=== PATIENT | female | born 1940 | race Two or more races ===

== ENCOUNTER 2022-11-11 21:27 | Inpatient (IN) | payer MEDICARE ==
[~2022-11-11] VITALS: Ht 157.5 cm; Wt 59.9 kg
--- NOTE | 2022-11-11 22:00 | NUR ---
Received a 82 yr old female from [facility] with an admitting diagnosis of S/P left hip fracture, S/P left hip ORIF (11/07/22) by Dr Banda. AAOx3-4. All needs attended. VSS. Left hip dressing with minimal drainage and intact with raghavendra. Fall precautions maintained. On room air. Denies any pain nor any discomfort. Glez catheter removed today at [facility]. I & O monitor. Hx of HTN, Hyperlipidemia and Falls. Patient on regular diet. Will monitor patient. Angela SALES REPRESENTATIVE [employer] aware and also Dr Sheikh aware of patient's admission. No acute distress noted.
[2022-11-11] MEDS ORDERED: ENOX40DI SQ (22:23)
[2022-11-11] MEDS ORDERED: LISI10TA29 PO (22:23)
[2022-11-11] MEDS ORDERED: BUPR-319 PO (22:23)
[2022-11-11] MEDS ORDERED: QUET50TA PO (22:23)
[2022-11-11] MEDS ORDERED: RALO60TA PO (22:23)
[2022-11-11] MEDS ORDERED: OXYB10TA30 PO (22:23)
[2022-11-11] MEDS ORDERED: CARV6.252 PO (22:23)
[2022-11-11] MEDS ORDERED: REMEDY ESSENTIAL ZINC PASTE 113 GM TOP PRN (22:45)
[2022-11-11] MEDS: OXYCODONE/APAP 5-325 MG TABLET PO PRN (23:19)
[2022-11-12 06:22] VITALS: BP 147/64
[2022-11-12 06:25] VITALS: BP 147/64
[2022-11-12 08:00] VITALS: BP 152/65
[2022-11-12] MEDS: ENOXAPARIN SODIUM 40 MG/0.4 ML DISP.SYRIN SQ SCH (09:12)
[2022-11-12] MEDS: OXYBUTYNIN XL 5 MG TABSR PO SCH (09:13)
[2022-11-12] MEDS: buPROPion XL 150 MG TAB.SR.24H PO SCH (09:13)
[2022-11-12] MEDS: CARVEDILOL 6.25 MG TABLET PO SCH ×2 (09:13→16:54)
[2022-11-12] MEDS: OXYCODONE/APAP 5-325 MG TABLET PO PRN ×2 (09:14→20:25)
[2022-11-12] MEDS: RALOXIFENE HCL 60 MG TABLET PO SCH (09:15)
[2022-11-12] MEDS ORDERED: MAGNESIUM HYDROXIDE 30 ML LIQUID UDC PO ONE (15:30)
[2022-11-12] MEDS: MIRALAX 17 GM POWD.PACK PO SCH (15:56)
[2022-11-12 16:00] VITALS: BP 153/64
[2022-11-12] MEDS: LISINOPRIL 10 MG TABLET PO SCH (16:54)
[2022-11-12] MEDS: QUETIAPINE FUMARATE 25 MG TABLET PO SCH (17:04)
--- NOTE | 2022-11-12 18:53 | NUR ---
patient voided once during shift, no bladder discomfort noted, no bladder distension noted.
--- NOTE | 2022-11-12 19:09 | NUR ---
Patient stated she voided once with PT, however bladder scan is 520ml, in and out catheter performed with 800ml output.
[2022-11-12] MEDS ORDERED: BISACODYL 10 MG SUPP.RECT RC ONE (19:30)
[2022-11-12 20:00] VITALS: BP 154/67
[2022-11-13 04:00] VITALS: BP 143/53
--- NOTE | 2022-11-13 05:32 | NUR ---
Pt distended. Bladder scanner showed 350 ml. Straight cath done. Had output of 400 ml. Pt stated relief.
[2022-11-13] MEDS: OXYCODONE/APAP 5-325 MG TABLET PO PRN (06:23)
--- NOTE | 2022-11-13 06:50 | NUR ---
Slept intermittently. Complained of pain on her left hip, Percocet given as ordered. Suppository given. Had 3 small bowel movement. Kept clean and dry. All needs attended. Safety precautions maintained. Will endorse to incoming shift.
[2022-11-13 08:00] VITALS: BP 146/65
[2022-11-13] MEDS: buPROPion XL 150 MG TAB.SR.24H PO SCH (09:29)
[2022-11-13] MEDS: LISINOPRIL 10 MG TABLET PO SCH (09:29)
[2022-11-13] MEDS: CARVEDILOL 6.25 MG TABLET PO SCH ×2 (09:29→17:00)
[2022-11-13] MEDS: MIRALAX 17 GM POWD.PACK PO SCH (09:30)
[2022-11-13] MEDS: OXYBUTYNIN XL 5 MG TABSR PO SCH (09:30)
[2022-11-13] MEDS: RALOXIFENE HCL 60 MG TABLET PO SCH (09:34)
[2022-11-13] MEDS: ENOXAPARIN SODIUM 40 MG/0.4 ML DISP.SYRIN SQ SCH (09:35)
[2022-11-13] MEDS ORDERED: LEVO112T5 PO (11:32)
[2022-11-13] MEDS ORDERED: LEVOTHYROXINE SODIUM 112 MCG TABLET PO SCH (12:15)
[2022-11-13 16:00] VITALS: BP 115/56
[2022-11-13] MEDS: QUETIAPINE FUMARATE 25 MG TABLET PO SCH (17:22)
[2022-11-13] MEDS: VITAMINS A AND D OINT TP SCH (17:22)
--- NOTE | 2022-11-13 19:41 | NUR ---
PT STABLE THROUGHOUT THE DAY PT DONE DSG TO LEFT HIP CHANGED MINIMAL DRAINAGE NOTED 1300 BLADDER SCAN 310 . PT WITH BM X2 BLADDER SCAN DONE AT 1930 REPORT T ONCOMING RN.
[2022-11-13 20:00] VITALS: BP 128/57
[2022-11-14 04:00] VITALS: BP 111/45
--- NOTE | 2022-11-14 04:40 | NUR ---
Slept intermittently. No acute distress noted. No urine output for 8 hrs. Noted bladder distention. Bladder scanner showed 367 ml. Straight catheterization done aseptically. Had urine output of 400 ml.
[2022-11-14 07:17] LABS: HEMATOCRIT 23.1 % (31.2-41.9); MEAN CORPUSCULAR HEMOGLOBIN 30.5 uug (24.7-32.8); MEAN CORPUSCULAR VOLUME 93.4 fL (75.5-95.3); PLATELET COUNT (AUTO) 306 K/uL (179-408)
[2022-11-14 07:32] LABS: THYROID STIMULATING HORMONE 11.605 mIU/mL (0.358-3.740)
[2022-11-14 07:59] LABS: BILIRUBIN,TOTAL 0.9 mg/dL (0.2-1.0); CREATININE 0.8 mg/dL (0.6-1.3); MAGNESIUM 2.5 mg/dL (1.8-2.4); PHOSPHOROUS 3.9 mg/dL (2.5-4.9); POTASSIUM 4.1 mmol/L (3.5-5.1); TOTAL PROTEIN, SERUM 5.2 g/dL (6.4-8.2)
[2022-11-14] MEDS: VITAMINS A AND D OINT TP SCH ×3 (09:00→18:00)
[2022-11-14] MEDS: OXYBUTYNIN XL 5 MG TABSR PO SCH (10:06)
[2022-11-14] MEDS: MIRALAX 17 GM POWD.PACK PO SCH (10:06)
[2022-11-14] MEDS: CARVEDILOL 6.25 MG TABLET PO SCH ×2 (10:07→18:07)
[2022-11-14] MEDS: LISINOPRIL 10 MG TABLET PO SCH (10:08)
[2022-11-14] MEDS: buPROPion XL 150 MG TAB.SR.24H PO SCH (10:08)
[2022-11-14] MEDS: ENOXAPARIN SODIUM 40 MG/0.4 ML DISP.SYRIN SQ SCH (10:10)
[2022-11-14] MEDS: LEVOTHYROXINE SODIUM 112 MCG TABLET PO SCH (10:21)
[2022-11-14 10:49] LABS: *BILIRUBIN,URIN NEGATIVE (NEGATIVE); *CLARITY,URINE CLEAR (CLEAR); *COLOR,URINE YELLOW (YELLOW); *KETONES,URINE NEGATIVE (NEGATIVE); *UROBILINOGEN,URINE 0.2 E.U./dl (NORMAL); LEUKOCYTE ESTERASE ,URINE 2+ (NEGATIVE); NITRITE, URINE NEGATIVE (NEGATIVE); UGLUCOSE NEGATIVE (NEGATIVE)
[2022-11-14 10:51] LABS: *BLOOD, URINE TRACE (NEGATIVE)
[2022-11-14] MEDS: RALOXIFENE HCL 60 MG TABLET PO SCH (11:23)
[2022-11-14] MEDS: PROTEIN SUPPLEMENT (PROSTAT) 30 ML LIQUID PO SCH ×2 (12:20→18:00)
[2022-11-14 13:17] LABS: BACTERIA,URINE FEW /HPF (NONE SEEN); RBC,URINE 0-3 /HPF (0-3); SQUAMOUS EPITHELIAL CELL,UR MODERATE /HPF (NONE SEEN)
[2022-11-14] MEDS: CYANOCOBALAMIN 1000 MCG/ML VIAL IM SCH (14:26)
[2022-11-14] MEDS: SULFAMETH/TRIMETH 800/160 MG TABLET PO SCH ×2 (14:26→20:07)
[2022-11-14] MEDS: QUETIAPINE FUMARATE 25 MG TABLET PO SCH (18:09)
[2022-11-14 20:35] VITALS: BP 131/51
[2022-11-14] MEDS: OXYCODONE/APAP 5-325 MG TABLET PO PRN (22:59)
[2022-11-14] MEDS ORDERED: HYDROCODONE/APAP 5-325MG TABLET PO PRN (23:00)
[2022-11-15] MEDS: diphenhydrAMINE 25 MG CAP PO PRN (01:09)
--- NOTE | 2022-11-15 01:11 | NUR ---
Patient care assumed at 0015. Patient awake, alert, and oriented x4. Room air. Glez intact with clear elli urine noted. Left leg edema noted. Left hip dressing dry and intact. Circulation , movement, and sensation intact to toes. Will continue to monitor.
[2022-11-15 04:38] VITALS: BP 104/46
[2022-11-15] MEDS: LEVOTHYROXINE SODIUM 112 MCG TABLET PO SCH (05:33)
[2022-11-15 08:18] VITALS: BP 117/56
[2022-11-15] MEDS: ENOXAPARIN SODIUM 40 MG/0.4 ML DISP.SYRIN SQ SCH (08:35)
[2022-11-15] MEDS: SULFAMETH/TRIMETH 800/160 MG TABLET PO SCH ×2 (08:48→21:56)
[2022-11-15] MEDS: OXYBUTYNIN XL 5 MG TABSR PO SCH (08:48)
[2022-11-15] MEDS: CYANOCOBALAMIN 1000 MCG/ML VIAL IM SCH (08:48)
[2022-11-15] MEDS: buPROPion XL 150 MG TAB.SR.24H PO SCH (08:49)
[2022-11-15] MEDS: RALOXIFENE HCL 60 MG TABLET PO SCH (08:49)
[2022-11-15] MEDS: CARVEDILOL 6.25 MG TABLET PO SCH ×2 (08:49→16:32)
[2022-11-15] MEDS: MIRALAX 17 GM POWD.PACK PO SCH (08:50)
[2022-11-15] MEDS: LISINOPRIL 10 MG TABLET PO SCH (08:50)
[2022-11-15] MEDS: VITAMINS A AND D OINT TP SCH ×3 (08:51→16:33)
[2022-11-15] MEDS: PROTEIN SUPPLEMENT (PROSTAT) 30 ML LIQUID PO SCH ×2 (08:51→16:32)
[2022-11-15] MEDS: OXYCODONE/APAP 5-325 MG TABLET PO PRN ×2 (13:54→23:39)
[2022-11-15 15:37] VITALS: BP 128/81
[2022-11-15] MEDS: QUETIAPINE FUMARATE 25 MG TABLET PO SCH (17:16)
--- NOTE | 2022-11-15 18:46 | NUR ---
incision site is clean and dry, no signs or symptoms of infections noted, no redness, no drainage, no increased erythema noted. raghavendra intact.
[2022-11-16] MEDS: LEVOTHYROXINE SODIUM 112 MCG TABLET PO SCH (06:11)
[2022-11-16 07:22] LABS: BILIRUBIN,TOTAL 0.7 mg/dL (0.2-1.0); CREATININE 0.7 mg/dL (0.6-1.3); MAGNESIUM 2.2 mg/dL (1.8-2.4); PHOSPHOROUS 3.9 mg/dL (2.5-4.9); POTASSIUM 4.4 mmol/L (3.5-5.1); TOTAL PROTEIN, SERUM 5.2 g/dL (6.4-8.2)
[2022-11-16 07:54] VITALS: BP 159/69
[2022-11-16] MEDS: OXYBUTYNIN XL 5 MG TABSR PO SCH (09:24)
[2022-11-16] MEDS: buPROPion XL 150 MG TAB.SR.24H PO SCH (09:25)
[2022-11-16] MEDS: SULFAMETH/TRIMETH 800/160 MG TABLET PO SCH ×2 (09:25→21:12)
[2022-11-16] MEDS: LISINOPRIL 10 MG TABLET PO SCH (09:26)
[2022-11-16] MEDS: OXYCODONE/APAP 5-325 MG TABLET PO PRN ×2 (09:26→21:13)
[2022-11-16] MEDS: CYANOCOBALAMIN 1000 MCG/ML VIAL IM SCH (09:27)
[2022-11-16] MEDS: CARVEDILOL 6.25 MG TABLET PO SCH ×2 (09:27→18:20)
[2022-11-16] MEDS: MIRALAX 17 GM POWD.PACK PO SCH (09:27)
[2022-11-16] MEDS: VITAMINS A AND D OINT TP SCH ×3 (09:28→18:21)
[2022-11-16] MEDS: PROTEIN SUPPLEMENT (PROSTAT) 30 ML LIQUID PO SCH ×2 (09:29→18:21)
[2022-11-16] MEDS: RALOXIFENE HCL 60 MG TABLET PO SCH (09:32)
[2022-11-16] MEDS: ENOXAPARIN SODIUM 40 MG/0.4 ML DISP.SYRIN SQ SCH (09:38)
--- NOTE | 2022-11-16 15:44 | NUR ---
INDIVIDUALIZED PLAN OF CARE THIS WAS OBSERVED AND DONE ON 11/14/22 13:00
[2022-11-16] MEDS: QUETIAPINE FUMARATE 25 MG TABLET PO SCH (18:17)
[2022-11-16 20:00] VITALS: BP 107/45
--- NOTE | 2022-11-16 20:17 | NUR ---
RECEIVED REPORT FROM CHICO RICH, NOC SHIFT. PATIENT IS ALERT & ORIENTED X4, AND SPEAKS DUTCH. VITAL SIGNS STABLE. PATIENT HAD COMPLAINT OF PAIN. RN GAVE PAIN MEDICATIONS ORDERED BY MD. PATIENT EXPRESSED COMFORTABLE. PATIENT PARTICIPATES WITH PHYSICAL AND OCCUPATIONAL THERAPY SCHEDULED. PATIENT TOLERATES PO AND DIET WELL. WOUND DRESSING CHANGED PER ORDERED. PATIENT'S AND FRIEND VISITED TODAY. NO ACUTE DISTRESS. ALL NEEDS MET AT THIS TIME. FALL PRECAUTIONS OBSERVED. CALL LIGHT WITHIN REACH. ENDORSED CARE TO LEN PINEDA RN, NOC SHIFT FOR CONTINUATION OF CARE.
[2022-11-17] MEDS: diphenhydrAMINE 25 MG CAP PO PRN (01:27)
[2022-11-17 04:00] VITALS: BP 123/55
[2022-11-17] MEDS: LEVOTHYROXINE SODIUM 112 MCG TABLET PO SCH (06:15)
--- NOTE | 2022-11-17 07:22 | NUR ---
WOUND CARE CONSULT: PT PRESENTS WITH DISCOLORATION TO UPPER EXTREMITIES, RT ARM SKIN TEAR, LEFT HIP/THIGH CLOSED INCISIONS WITH PEÑA, ALL PRESENT ON ADMISSION. RECOMMENDATIONS MADE FOR SKIN PROTECTION AND WOUND CARE. DISCUSSED WITH NURSING STAFF. MD IN AGREEMENT WITH PLAN OF CARE.
[2022-11-17 08:00] VITALS: BP 151/52
[2022-11-17] MEDS: CARVEDILOL 6.25 MG TABLET PO SCH ×2 (08:24→16:56)
[2022-11-17] MEDS: OXYBUTYNIN XL 5 MG TABSR PO SCH (08:25)
[2022-11-17] MEDS: buPROPion XL 150 MG TAB.SR.24H PO SCH (08:25)
[2022-11-17] MEDS: CYANOCOBALAMIN 1000 MCG/ML VIAL IM SCH (08:25)
[2022-11-17] MEDS: LISINOPRIL 10 MG TABLET PO SCH (08:25)
[2022-11-17] MEDS: SULFAMETH/TRIMETH 800/160 MG TABLET PO SCH ×2 (08:25→20:10)
[2022-11-17] MEDS: OXYCODONE/APAP 5-325 MG TABLET PO PRN ×2 (08:26→22:10)
[2022-11-17] MEDS: MIRALAX 17 GM POWD.PACK PO SCH (08:26)
[2022-11-17] MEDS: PROTEIN SUPPLEMENT (PROSTAT) 30 ML LIQUID PO SCH (08:26)
[2022-11-17] MEDS: RALOXIFENE HCL 60 MG TABLET PO SCH (08:28)
[2022-11-17] MEDS: ENOXAPARIN SODIUM 40 MG/0.4 ML DISP.SYRIN SQ SCH (08:28)
[2022-11-17] MEDS: NEOMY/BACITRAC/POLYMI OINT 28.35 GM TUBE TOP SCH (11:52)
[2022-11-17 16:05] VITALS: BP 124/51
--- NOTE | 2022-11-17 19:54 | NUR ---
RECEIVED REPORT FROM CHICO ESPANA, RIVAS SHIFT. PATIENT IS ALERT & ORIENTED X4, AND SPEAKS ALBANIAN. VITAL SIGNS STABLE. PATIENT HAD COMPLAINT OF PAIN. RN GAVE PAIN MEDICATIONS ORDERED BY MD. PATIENT EXPRESSED COMFORTABLE. PATIENT PARTICIPATES WITH PHYSICAL AND OCCUPATIONAL THERAPY SCHEDULED. PATIENT TOLERATES PO AND DIET WELL. WOUND DRESSING CHANGED PER ORDERED. PATIENT'S AND FRIENDS VISITED TODAY. NO ACUTE DISTRESS. ALL NEEDS MET AT THIS TIME. FALL PRECAUTIONS OBSERVED. CALL LIGHT WITHIN REACH. ENDORSED CARE TO LEN CROUCH RN, NOC SHIFT FOR CONTINUATION OF CARE.
[2022-11-17 20:00] VITALS: BP 127/55
--- NOTE | 2022-11-17 20:00 | NUR ---
NSG: Received patient lying in bed. awake,alert and oriented x4. pleasant upon approach. no c/o pain or discomfort at thi9s time. pt is on Room air. Glez cath intact with clear elli urine noted. Left leg edema noted. Left hip dressing dry and intact. Circulation , movement, and sensation intact to toes. call light w/in reach.Will continue to monitor.
[2022-11-17] MEDS: QUETIAPINE FUMARATE 25 MG TABLET PO SCH (20:10)
[2022-11-17 20:44] VITALS: BP 127/55
--- NOTE | 2022-11-17 22:10 | NUR ---
patient c/o pain percocet 5/325 mg po prn given per patient requested.
--- NOTE | 2022-11-17 23:10 | NUR ---
NSG: PATIENT IS RESTING QUIETLY. PRN FOR PAIN EFFECTIVE.
--- NOTE | 2022-11-18 04:44 | NUR ---
NSG: Patient is awake watching tv. Slept intermittently through the night. percocet effective for left hip pain. f/c patent and draining yellow urine. Kept clean and dry. All needs attended. Safety precautions maintained.call light w/in reach.
[2022-11-18 05:50] VITALS: BP 129/54
[2022-11-18] MEDS: LEVOTHYROXINE SODIUM 112 MCG TABLET PO SCH (06:23)
[2022-11-18 08:00] VITALS: BP 141/56
[2022-11-18] MEDS: CARVEDILOL 6.25 MG TABLET PO SCH ×2 (08:58→17:00)
[2022-11-18] MEDS: OXYBUTYNIN XL 5 MG TABSR PO SCH (08:58)
[2022-11-18] MEDS: buPROPion XL 150 MG TAB.SR.24H PO SCH (08:58)
[2022-11-18] MEDS: SULFAMETH/TRIMETH 800/160 MG TABLET PO SCH ×2 (08:58→20:34)
[2022-11-18] MEDS: CYANOCOBALAMIN 1000 MCG/ML VIAL IM SCH (08:59)
[2022-11-18] MEDS: LISINOPRIL 10 MG TABLET PO SCH (08:59)
[2022-11-18] MEDS: MIRALAX 17 GM POWD.PACK PO SCH (08:59)
[2022-11-18] MEDS: NEOMY/BACITRAC/POLYMI OINT 28.35 GM TUBE TOP SCH (09:00)
[2022-11-18] MEDS: ENOXAPARIN SODIUM 40 MG/0.4 ML DISP.SYRIN SQ SCH (09:00)
[2022-11-18] MEDS: RALOXIFENE HCL 60 MG TABLET PO SCH (09:04)
[2022-11-18] MEDS: OXYCODONE/APAP 5-325 MG TABLET PO PRN ×2 (09:07→19:35)
--- NOTE | 2022-11-18 15:51 | NUR ---
INTERDISCIPLINARY TEAM CONFERENCE
--- NOTE | 2022-11-18 18:00 | NUR ---
Pt lethargic pt doesnt follow any directions. No facial droop noted. Pt on R/A. Deanna mitchell pain level @ 0/10. Tele SNR. IVf infusing as ordered. Family at bedside. Call Light is within reach. Addendum: 11/18/22 at 1948 by CHIRAG KATZ RN WRONG PATIENT. WRONG PATIENT. WRONG PATIENT.
--- NOTE | 2022-11-18 18:30 | NUR ---
Pt tolerated physical therapy sessions today. Got order for andreaien as pt c/o not being able to sleep last two nights. F/C ordered to be d/c. Pt's pain managed with pain meds. pt had a large bm early in am ambulating to the bathroom. Pt denies any c/o pain.
[2022-11-18 20:10] VITALS: BP 110/47
[2022-11-18] MEDS: ZOLPIDEM 5 MG TABLET PO PRN (20:34)
[2022-11-18] MEDS: QUETIAPINE FUMARATE 25 MG TABLET PO SCH (20:34)
[2022-11-19 04:07] VITALS: BP 129/60
[2022-11-19] MEDS: LEVOTHYROXINE SODIUM 112 MCG TABLET PO SCH (06:56)
[2022-11-19 08:10] VITALS: BP 137/64
[2022-11-19] MEDS: NEOMY/BACITRAC/POLYMI OINT 28.35 GM TUBE TOP SCH (09:16)
[2022-11-19] MEDS: SULFAMETH/TRIMETH 800/160 MG TABLET PO SCH (09:28)
[2022-11-19] MEDS: OXYBUTYNIN XL 5 MG TABSR PO SCH (09:28)
[2022-11-19] MEDS: CARVEDILOL 6.25 MG TABLET PO SCH ×2 (09:28→17:38)
[2022-11-19] MEDS: LISINOPRIL 10 MG TABLET PO SCH (09:28)
[2022-11-19] MEDS: buPROPion XL 150 MG TAB.SR.24H PO SCH (09:28)
[2022-11-19] MEDS: CYANOCOBALAMIN 1000 MCG/ML VIAL IM SCH (09:29)
[2022-11-19] MEDS: MIRALAX 17 GM POWD.PACK PO SCH (09:30)
[2022-11-19] MEDS: OXYCODONE/APAP 5-325 MG TABLET PO PRN (09:48)
[2022-11-19] MEDS: RALOXIFENE HCL 60 MG TABLET PO SCH (09:51)
--- NOTE | 2022-11-19 12:22 | NUR ---
At 0930, pt requested to hold her Miralax until after PT, now she would still like to wait to take it because she has family, Shekhar and dtr in law Yamileth, at the bedside. Will continue to hold Miralax until pt is ready. I called the kitchen to get menus and called OT to notify that pt would like a shower per pt and family request.
[2022-11-19 16:00] VITALS: BP 142/63
[2022-11-19 20:00] VITALS: BP 115/69
[2022-11-19] MEDS: QUETIAPINE FUMARATE 25 MG TABLET PO SCH (20:43)
[2022-11-19] MEDS: ZOLPIDEM 5 MG TABLET PO PRN (20:43)
--- NOTE | 2022-11-19 23:59 | NUR ---
RECEIVED PATIENT FROM REGISTRY NURSE RITO GOLDEN. PATIENT IS ASLEEP IN BED. RESTING WELL. BED ALARM ON. CALL LIGHT IN REACH. ALL NEEDS ATTENDED. WILL CONTINUE TO MONITOR AND ASSESS.
[2022-11-20] MEDS: OXYCODONE/APAP 5-325 MG TABLET PO PRN ×3 (01:00→21:04)
[2022-11-20] MEDS: LEVOTHYROXINE SODIUM 112 MCG TABLET PO SCH (06:08)
[2022-11-20 07:56] VITALS: BP 90/54
[2022-11-20] MEDS: buPROPion XL 150 MG TAB.SR.24H PO SCH (09:00)
[2022-11-20] MEDS: LISINOPRIL 10 MG TABLET PO SCH (09:00)
[2022-11-20] MEDS: MIRALAX 17 GM POWD.PACK PO SCH (09:00)
[2022-11-20] MEDS: NEOMY/BACITRAC/POLYMI OINT 28.35 GM TUBE TOP SCH (09:00)
[2022-11-20] MEDS: OXYBUTYNIN XL 5 MG TABSR PO SCH (09:59)
[2022-11-20] MEDS: CARVEDILOL 6.25 MG TABLET PO SCH ×2 (09:59→18:00)
[2022-11-20] MEDS: RALOXIFENE HCL 60 MG TABLET PO SCH (09:59)
[2022-11-20] MEDS: CYANOCOBALAMIN 1000 MCG/ML VIAL IM SCH (09:59)
[2022-11-20 15:37] LABS: MEAN CORPUSCULAR HEMOGLOBIN 30.6 uug (24.7-32.8); MEAN CORPUSCULAR VOLUME 93.6 fL (75.5-95.3); PLATELET COUNT (AUTO) 542 K/uL (179-408)
[2022-11-20 16:16] LABS: THYROID STIMULATING HORMONE 21.43 mIU/mL (0.358-3.740)
[2022-11-20 16:38] LABS: CREATININE 0.8 mg/dL (0.6-1.3); POTASSIUM 4.8 mmol/L (3.5-5.1)
[2022-11-20 16:43] LABS: BILIRUBIN,TOTAL 0.6 mg/dL (0.2-1.0); TOTAL PROTEIN, SERUM 6.5 g/dL (6.4-8.2)
--- NOTE | 2022-11-20 19:09 | NUR ---
SHIFT NOTE: RECEIVED PATIENT ALERT AND ORIENTED X 4 PT RECEIVED SHOWER IN THE AM ALONG WITH PT AND TOLERATED WELL. MEDICATION GIVEN ORDERED NO SIGNS OF ADVERSE REACTION NOTED. FALL AND SAFETY PRECAUTION MAINTAINED. PT WAS SEEN BY DR HUGHES HE ORDER DIETARY CONSULT AND ORDER WAS PUT IN COMPUTER. FAMILY REQUESTED TO PATIENT OUT IN THE GARDEN OF THE HOSPITAL AND ASK DR HUGHES WHILE STILL IN HOSPITAL HE STATED"THAT IS FINE" ASSISTED PT BACK IN BED AFTER OUTING IN GARDEN. PT WAS NOT GIVEN HS MEDICATION B/P LOW 125/38. WILL ENDORSE TO HS NURSE.
[2022-11-20 20:00] VITALS: BP 140/53
[2022-11-20] MEDS: QUETIAPINE FUMARATE 25 MG TABLET PO SCH (20:46)
[2022-11-20] MEDS: ZOLPIDEM 5 MG TABLET PO PRN (21:12)
[2022-11-21] MEDS: LEVOTHYROXINE SODIUM 112 MCG TABLET PO SCH (06:32)
[2022-11-21 07:55] VITALS: BP 117/45
[2022-11-21] MEDS: OXYBUTYNIN XL 5 MG TABSR PO SCH (08:39)
[2022-11-21] MEDS: buPROPion XL 150 MG TAB.SR.24H PO SCH (08:39)
[2022-11-21] MEDS: CYANOCOBALAMIN 1000 MCG/ML VIAL IM SCH (08:42)
[2022-11-21] MEDS: MIRALAX 17 GM POWD.PACK PO SCH (08:42)
[2022-11-21] MEDS: RALOXIFENE HCL 60 MG TABLET PO SCH (08:42)
[2022-11-21] MEDS: LISINOPRIL 10 MG TABLET PO SCH (08:43)
[2022-11-21] MEDS: CARVEDILOL 6.25 MG TABLET PO SCH ×2 (08:44→17:00)
[2022-11-21] MEDS: NEOMY/BACITRAC/POLYMI OINT 28.35 GM TUBE TOP SCH (09:03)
[2022-11-21] MEDS: OXYCODONE/APAP 5-325 MG TABLET PO PRN ×2 (10:03→17:04)
[2022-11-21 15:23] VITALS: BP 126/49
--- NOTE | 2022-11-21 19:32 | NUR ---
RECEIVED REPORT FROM CHICO BOYKIN, RIVAS SHIFT. PATIENT IS ALERT & ORIENTED X4, AND SPEAKS KHMER. VITAL SIGNS STABLE. PATIENT HAD COMPLAINT OF PAIN. RN GAVE PAIN MEDICATIONS ORDERED BY MD. PATIENT EXPRESSED COMFORTABLE. PATIENT PARTICIPATES WITH PHYSICAL AND OCCUPATIONAL THERAPY SCHEDULED. PATIENT TOLERATES PO AND DIET WELL. WOUND DRESSING CHANGED PER ORDERED. PATIENT'S VISITED TODAY. NO ACUTE DISTRESS. ALL NEEDS MET AT THIS TIME. FALL PRECAUTIONS OBSERVED. CALL LIGHT WITHIN REACH. ENDORSED CARE TO LUCRETIA, MECHANICAL FIELD ENGINEER, NOC SHIFT FOR CONTINUATION OF CARE.
[2022-11-21] MEDS: ZOLPIDEM 5 MG TABLET PO PRN (20:30)
[2022-11-21] MEDS: QUETIAPINE FUMARATE 25 MG TABLET PO SCH (20:30)
[2022-11-22 04:00] VITALS: BP 111/56
[2022-11-22 05:56] LABS: HEMATOCRIT 25.8 % (31.2-41.9); MEAN CORPUSCULAR HEMOGLOBIN 30.6 uug (24.7-32.8); MEAN CORPUSCULAR VOLUME 93.7 fL (75.5-95.3); PLATELET COUNT (AUTO) 414 K/uL (179-408)
[2022-11-22 06:10] LABS: BILIRUBIN,TOTAL 0.4 mg/dL (0.2-1.0); CREATININE 0.7 mg/dL (0.6-1.3); PHOSPHOROUS 3.5 mg/dL (2.5-4.9); POTASSIUM 4.4 mmol/L (3.5-5.1); TOTAL PROTEIN, SERUM 5.7 g/dL (6.4-8.2)
--- NOTE | 2022-11-22 06:21 | NUR ---
PATIENT IN BED, SLEPT WELL. AOX4. NO SOB OR RESP DISTRESS NOTED. SKIN IS WARM TO TOUCH AND DRY. AFEBRILE. PATIENT REQUESTED SLEEPING PILL AND GIVEN BY RN ORDERED. NOTED EFFECTIVE. CONTINUE PT/OT TREATMENT PER MD ORDERS. DENIES ANY PAIN OR DISCOMFORT. ALL DUE MEDS GIVEN ORDERED AND TOLERATED WELL.NO ADVERSE EFFECTS NOTED. CALL LIGHT IN REACH. ALL NEEDS AND ATTENDED. KEPT CLEAN DRY AND COMFORTABLE. REPOSITIONED Q2HRS AND NEEDED.
[2022-11-22] MEDS: LEVOTHYROXINE SODIUM 112 MCG TABLET PO SCH (06:48)
[2022-11-22 08:00] VITALS: BP 133/53
--- NOTE | 2022-11-22 08:00 | NUR ---
Discussed pt plan of care today re: pain management and to ask RN for pain med prior to therapy sessions. Left hip dressing changed. x 2 incision sites with raghavendra. noted dry skin tare on L lateral knee area
[2022-11-22] MEDS: OXYBUTYNIN XL 5 MG TABSR PO SCH (08:31)
[2022-11-22] MEDS: buPROPion XL 150 MG TAB.SR.24H PO SCH (08:32)
[2022-11-22] MEDS: OXYCODONE/APAP 5-325 MG TABLET PO PRN ×2 (08:36→14:19)
[2022-11-22] MEDS: MIRALAX 17 GM POWD.PACK PO SCH (08:40)
[2022-11-22] MEDS: CYANOCOBALAMIN 1000 MCG/ML VIAL IM SCH (08:40)
[2022-11-22] MEDS: CARVEDILOL 6.25 MG TABLET PO SCH ×2 (08:40→16:47)
[2022-11-22] MEDS: NEOMY/BACITRAC/POLYMI OINT 28.35 GM TUBE TOP SCH (08:41)
[2022-11-22] MEDS: LISINOPRIL 10 MG TABLET PO SCH (08:41)
[2022-11-22] MEDS: RALOXIFENE HCL 60 MG TABLET PO SCH (08:42)
[2022-11-22 16:00] VITALS: BP 118/47
--- NOTE | 2022-11-22 18:30 | NUR ---
Pt pain managed with pain meds. Pt is in no acute distress.
[2022-11-22 20:00] VITALS: BP 110/50
[2022-11-22] MEDS: QUETIAPINE FUMARATE 25 MG TABLET PO SCH (20:54)
[2022-11-22] MEDS: ZOLPIDEM 5 MG TABLET PO PRN (20:54)
[2022-11-23] MEDS: OXYCODONE/APAP 5-325 MG TABLET PO PRN ×3 (02:12→16:15)
[2022-11-23 02:30] VITALS: BP 144/54
[2022-11-23] MEDS: LEVOTHYROXINE SODIUM 112 MCG TABLET PO SCH ×2 (06:21→06:30)
--- NOTE | 2022-11-23 07:30 | NUR ---
REPORT GIVEN TO CHICO BENAVIDEZ
[2022-11-23 07:40] VITALS: BP 147/64
[2022-11-23] MEDS: buPROPion XL 150 MG TAB.SR.24H PO SCH (08:22)
[2022-11-23] MEDS: OXYBUTYNIN XL 5 MG TABSR PO SCH (08:23)
[2022-11-23] MEDS: CYANOCOBALAMIN 1000 MCG/ML VIAL IM SCH (08:23)
[2022-11-23] MEDS: CARVEDILOL 6.25 MG TABLET PO SCH ×2 (08:23→16:15)
[2022-11-23] MEDS: MIRALAX 17 GM POWD.PACK PO SCH (08:24)
[2022-11-23] MEDS: LISINOPRIL 10 MG TABLET PO SCH (08:24)
[2022-11-23] MEDS: NEOMY/BACITRAC/POLYMI OINT 28.35 GM TUBE TOP SCH (08:35)
[2022-11-23] MEDS: RALOXIFENE HCL 60 MG TABLET PO SCH (09:07)
--- NOTE | 2022-11-23 11:39 | NUR ---
0730-Rec'd patient in bed, awake, A/Ox4. Verbalizes needs and follows directions. Patient in no apparent respiratory distress, denies pain at this time. Oral fluids encouraged as siva. and taken well. Safety measures in place, call light at reach and reminded to use it every time help is needed. 0900-Scheduled medications administered as ordered, no ASE noted. Patient compliant with treatment and care. 11:00-OOB with OT for her session as ordered; patient physically and actively able to participate in therapy, ambulates in hallway with FWW and supervision.
[2022-11-23 11:56] VITALS: BP 123/67
[2022-11-23 14:48] VITALS: BP 138/60
--- NOTE | 2022-11-23 15:20 | NUR ---
2:00pm-Patient was seen by Dr. Kori Cooney rehabilitation technician. Family at bedside when MD made his round. 2:30pm- Patient requested to be seen by PCP assigned. Notified Dr. Doe and stopped by to see patient. Patient's family still at bedside (pt's /son & son's ) Patient requested the list of medication she is currently on. Release of information form was signed by patient and medication list was given.
[2022-11-23 20:00] VITALS: BP 118/73
[2022-11-23] MEDS: QUETIAPINE FUMARATE 25 MG TABLET PO SCH (20:25)
[2022-11-23] MEDS: ZOLPIDEM 5 MG TABLET PO PRN (21:04)
[2022-11-24 04:00] VITALS: BP 139/52
[2022-11-24] MEDS: LEVOTHYROXINE SODIUM 112 MCG TABLET PO SCH (06:14)
[2022-11-24] MEDS: buPROPion XL 150 MG TAB.SR.24H PO SCH (08:23)
[2022-11-24] MEDS: LISINOPRIL 10 MG TABLET PO SCH (08:24)
[2022-11-24] MEDS: OXYCODONE HCL 5 MG TABLET PO SCH (08:24)
[2022-11-24] MEDS: CARVEDILOL 6.25 MG TABLET PO SCH ×2 (08:24→16:43)
[2022-11-24] MEDS: OXYBUTYNIN XL 5 MG TABSR PO SCH (08:24)
[2022-11-24] MEDS: MIRALAX 17 GM POWD.PACK PO SCH (08:24)
[2022-11-24] MEDS: RALOXIFENE HCL 60 MG TABLET PO SCH (08:26)
[2022-11-24] MEDS: NEOMY/BACITRAC/POLYMI OINT 28.35 GM TUBE TOP SCH (08:26)
[2022-11-24 12:42] VITALS: BP 119/76
[2022-11-24] MEDS: OXYCODONE/APAP 5-325 MG TABLET PO PRN (13:34)
[2022-11-24 14:03] VITALS: BP 144/39
--- NOTE | 2022-11-24 18:38 | NUR ---
Patient alert and O/x4 , verbalizes needs and follows directions. OOB with rehab for PT/OT skilled services; patient also rec'd a shower today by rehab personnel. treatment to left hip done/dressing changed. Patient cooperative with her treatment and care/. Assisted with ADLs and as needed. Needs anticipated and met. No ALFREDO noted.
[2022-11-24 20:45] VITALS: BP 115/56
[2022-11-24] MEDS: QUETIAPINE FUMARATE 25 MG TABLET PO SCH (20:52)
[2022-11-24] MEDS: ZOLPIDEM 5 MG TABLET PO PRN (20:52)
[2022-11-25] MEDS: OXYCODONE/APAP 5-325 MG TABLET PO PRN ×2 (01:20→13:40)
--- NOTE | 2022-11-25 04:34 | NUR ---
AAOx4 OOB to the BR with walker. Voiding well. BM noted this shift. VSS. Needs attended. Pain meds given as needed. Call dela cruz within reach. Siderails up for safety. Left hip dressing intact with raghavendra in place. No redness or swelling noted. Kept comfortable.
[2022-11-25 04:55] VITALS: BP 150/52
[2022-11-25] MEDS: LEVOTHYROXINE SODIUM 112 MCG TABLET PO SCH (06:09)
[2022-11-25 07:35] LABS: HEMATOCRIT 27.2 % (31.2-41.9); MEAN CORPUSCULAR HEMOGLOBIN 31.1 uug (24.7-32.8); MEAN CORPUSCULAR VOLUME 94.2 fL (75.5-95.3); PLATELET COUNT (AUTO) 402 K/uL (179-408)
[2022-11-25 08:00] VITALS: BP 130/60
[2022-11-25 08:01] LABS: CREATININE 0.6 mg/dL (0.6-1.3); POTASSIUM 4.1 mmol/L (3.5-5.1)
[2022-11-25] MEDS: MIRALAX 17 GM POWD.PACK PO SCH (09:00)
[2022-11-25] MEDS: LISINOPRIL 10 MG TABLET PO SCH (09:00)
[2022-11-25] MEDS: buPROPion XL 150 MG TAB.SR.24H PO SCH (09:13)
[2022-11-25] MEDS: OXYCODONE HCL 5 MG TABLET PO SCH (09:13)
[2022-11-25] MEDS: OXYBUTYNIN XL 5 MG TABSR PO SCH (09:13)
[2022-11-25] MEDS: CARVEDILOL 6.25 MG TABLET PO SCH ×2 (09:15→17:05)
[2022-11-25] MEDS: RALOXIFENE HCL 60 MG TABLET PO SCH (09:19)
[2022-11-25] MEDS: NEOMY/BACITRAC/POLYMI OINT 28.35 GM TUBE TOP SCH (09:24)
[2022-11-25 16:00] VITALS: BP 129/46
--- NOTE | 2022-11-25 16:42 | NUR ---
INTERDISCIPLINARY TEAM CONFERENCE
--- NOTE | 2022-11-25 19:11 | NUR ---
RECEIVED REPORT FROM CHICO ABDI NOC SHIFT. PATIENT IS ALERT & ORIENTED X4, AND SPEAKS ITALIAN. VITAL SIGNS STABLE. PATIENT HAD COMPLAINT OF PAIN. RN GAVE PAIN MEDICATIONS ORDERED BY . PATIENT EXPRESSED COMFORTABLE. PATIENT PARTICIPATES WITH PHYSICAL AND OCCUPATIONAL THERAPY SCHEDULED. PATIENT TOLERATES PO AND DIET WELL. WOUND DRESSING CHANGED PER ORDERED. PATIENT'S VISITED TODAY. NO ACUTE DISTRESS. ALL NEEDS MET AT THIS TIME. FALL PRECAUTIONS OBSERVED. CALL LIGHT WITHIN REACH. ENDORSED CARE TO CHICO PINEDA NOC SHIFT FOR CONTINUATION OF CARE. Addendum: 11/25/22 at 1923 by MICHEAL LOPEZ RN UPDATE REPORT GIVEN TO RIVAS ESPANA RN, FOR CONTINUATION OF CARE.
--- NOTE | 2022-11-25 19:45 | NUR ---
patient escorted by DIRECTOR CLINICAL DATA to the bathroom with walker patient had BM moderate in amt . placed back IN BED this time she is looking for a book ( [employer]) ,unable to find the book advised we will continue to look for it .
[2022-11-25 20:00] VITALS: BP 128/42
[2022-11-25] MEDS: QUETIAPINE FUMARATE 25 MG TABLET PO SCH (20:18)
[2022-11-25] MEDS: ZOLPIDEM 5 MG TABLET PO PRN (21:02)
--- NOTE | 2022-11-25 21:12 | NUR ---
patient called and requeasting sleeping medication . given Ambien prn as per patient request. .
--- NOTE | 2022-11-25 23:40 | NUR ---
rounds made patient in bed sleeping breathing even and unlabored no s/s of pain .
--- NOTE | 2022-11-26 02:25 | NUR ---
patient called escorted patient to the bathroom patient able to walk with walker . pateint voided and had a bm. changed soiled underwear and pajamas , back to bed.
[2022-11-26 04:00] VITALS: BP 118/64
--- NOTE | 2022-11-26 07:00 | NUR ---
called pharmacy c/o Synthroid medication patient needs 125 mcg and the [facility] is giving 2 tablet of 112 mcg. needs to be clarified .
[2022-11-26] MEDS ORDERED: LEVOTHYROXINE SODIUM 125 MCG TABLET PO SCH (07:05)
[2022-11-26 08:00] VITALS: BP 135/56
[2022-11-26] MEDS: OXYBUTYNIN XL 5 MG TABSR PO SCH (08:43)
[2022-11-26] MEDS: RALOXIFENE HCL 60 MG TABLET PO SCH (08:43)
[2022-11-26] MEDS: buPROPion XL 150 MG TAB.SR.24H PO SCH (08:43)
[2022-11-26] MEDS: OXYCODONE HCL 5 MG TABLET PO SCH (08:45)
[2022-11-26] MEDS: MIRALAX 17 GM POWD.PACK PO SCH (08:48)
[2022-11-26] MEDS: CARVEDILOL 6.25 MG TABLET PO SCH (08:49)
[2022-11-26 08:51] VITALS: BP 136/45
[2022-11-26] MEDS: LISINOPRIL 10 MG TABLET PO SCH (08:51)
[2022-11-26] MEDS: NEOMY/BACITRAC/POLYMI OINT 28.35 GM TUBE TOP SCH (08:56)
[2022-11-26] MEDS: OXYCODONE/APAP 5-325 MG TABLET PO PRN (12:28)
--- NOTE | 2022-11-26 14:20 | NUR ---
RECEIVED REPORT FROM CHICO ESPANA, NOC SHIFT. PATIENT IS ALERT & ORIENTED X4, AND SPEAKS KHMER. VITAL SIGNS STABLE. PATIENT HAD COMPLAINT OF PAIN. RN GAVE PAIN MEDICATIONS ORDERED BY MD. PATIENT EXPRESSED COMFORTABLE. PATIENT PARTICIPATES WITH PHYSICAL AND OCCUPATIONAL THERAPY SCHEDULED. PATIENT TOLERATES PO AND DIET WELL. RN CONFIRMS WITH PATIENT SHE IS TO BE DISCHARGE TODAY. PATIENT CONFIRMS AND AGREEABLE TO DISCHARGE. NO ACUTE DISTRESS NOTED. RN REMOVED PEÑA PER ORDER. NO SIGNS OF DEHISCENCE. RN APPLIED STERI STRIPS AND SURGICAL DRESSINGS. WOUND DRESSING CHANGED PER ORDERED. PHOTOS TAKEN FOR DISCHARGE. RN PROVIDED DISCHARGE EDUCATION TO PATIENT. PATIENT VERBALIZES UNDERSTANDING AND DISCHARGE DOCUMENTATION SIGNED. ALL QUESTIONS ANSWERED. PATIENT BELONGINGS ACCOUNTED FOR AND BELONGINGS LIST SIGNED. PATIENT'S AND CAREGIVER CAME TO PUBLIC TRANSIT TROLLEY DRIVER PATIENT. PATIENT DISCHARGED IN STABLE CONDITION.
== END 2022-11-26 14:20 | disposition home or self-care (01) | DRG 559 ==
PROVIDERS: ADMIT Physical Medicine & Rehabilitation Pain Medicine; ATTEND Physical Medicine & Rehabilitation Pain Medicine
DX: S72.142D Displaced intertrochanteric fracture of left femur, subsequent encounter for closed fracture with routine healing (principal); E43 Unspecified severe protein-calorie malnutrition; D68.59 Other primary thrombophilia; N17.9 Acute kidney failure, unspecified; E87.1 Hypo-osmolality and hyponatremia; N39.0 Urinary tract infection, site not specified; W01.0XXD Fall on same level from slipping, tripping and stumbling without subsequent striking against object, subsequent encounter; D50.0 Iron deficiency anemia secondary to blood loss (chronic); D69.6 Thrombocytopenia, unspecified; E53.8 Deficiency of other specified B group vitamins; E03.9 Hypothyroidism, unspecified; E83.41 Hypermagnesemia; E86.1 Hypovolemia; I11.9 Hypertensive heart disease without heart failure; I70.0 Atherosclerosis of aorta; K56.41 Fecal impaction; M19.90 Unspecified osteoarthritis, unspecified site; M81.0 Age-related osteoporosis without current pathological fracture; N32.81 Overactive bladder; Z20.822 Contact with and (suspected) exposure to COVID-19; Z87.891 Personal history of nicotine dependence; Z88.7 Allergy status to serum and vaccine; F32.A Depression, unspecified
CPT/HCPCS: 36415; 73090; 73502; 74018; 82652; 83550; 83735; 84100; 84443; 84481; 85025; 97535-GO-CO; A4663; A6209; C1758; J1650; J3420; Q0163